=== PATIENT | female | born 1960 | race Caucasian/White ===

== ENCOUNTER 2016-11-24 06:02 | Emergency (ER) | payer BC ==
[2016-11-24 06:13] VITALS: BP 153/81
--- NOTE | 2016-11-24 06:59 | EDM.PDOC ---
ED HPI GENERAL MEDICAL PROBLEM - General Chief Complaint: Abdominal Pain Stated Complaint: LEFT SIDE PAIN UP INTO SHOULDER BLADE Time Seen by Provider: 11/24/16 06:19 Source of Information: Reports: Patient, RN notes reviewed History Limitations: Reports: No limitations - History of Present Illness INITIAL COMMENTS - FREE TEXT/NARRATIVE: The patient states that she has had left side pain that extends into her lower back, up her left side, across her upper back and across her bilateral shoulders for several months. She is unable to characterize the pain, other than it is uncomfortable, although she reports occasional worsening pain that feels sharp in character. She denies any recent dyspnea, palpitations, nausea, emesis, constipation, diarrhea, or urinary symptoms (although she states that her bladder is full, presently). She states that her symptoms are worse with activity, better when at rest. She states that there is nothing different today about her symptoms, and I am unable to determine what precipitated her ED visit. She also reports central chest pain for several months. She states that she saw her chiropractor about this, and he determined, without performing any imaging studies or an EGD, that the patient had a hiatal hernia, and then was able to reduce it through some sort of manipulation. She states that she had instantaneous relief of pain. She saw her PCP, Jamaica Wall, a couple of months ago for an unrelated issue, and did not discuss her symptoms, therefore she has not had a previous medical evaluation of these symptoms. The patient was, however, seen in this ED 08/28/2016, after being found to have an elevated heart rate at the clinic. Workup, including an ECG, were unremarkable. The patient has never had an EGD, however, has had 3 colonoscopies that were normal. Left Flank Pain Score (Numeric/FACES): 4 - Related Data Allergies Allergy/AdvReac Type Severity Reaction Status Date / Time codeine Allergy Delusions Verified 11/24/16 06:13 Home Meds: Home Meds Betane Pepsin 1 - 2 cap PO TIDMEALS 08/28/16 [History] Estriol Compound 1 applic VAG ASDIRECTED 08/28/16 [History] Progesterone,Micronized [Progesterone] 150 mg PO BEDTIME 08/28/16 [History] Past Medical History HEENT History: Reports: Impaired vision Other HEENT History: wears eyeglasses. 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: Psychiatric History: Reports: Anxiety (untreated) - Infectious Disease History Infectious Disease History: Reports: Chicken pox - Past Surgical History GI Surgical History: Reports: Colonoscopy (x 3) Female Surgical History: Reports: section (x 2), Other (see below) ( Transvaginal cervical cerclage x 2) Social & Family History - Tobacco Use Smoking Status *Q: Never Smoker Second Hand Smoke Exposure: No - Caffeine Use Caffeine Use: Reports: None Caffeine Use Comment: states feels caffeine "brings on more anxiety." - Alcohol Use Alcohol Use History: Yes Alcohol Use Frequency: Rarely - Recreational Drug Use Recreational Drug Use: No - Living Situation & Occupation Living situation: Reports: , with spouse, with family (Daughter) Occupation: employed (3rd grade reading teacher) ED ROS GENERAL - Review of Systems Review Of Systems: See Below Constitutional: Reports: no symptoms HEENT: Reports: No symptoms Respiratory: Reports: No Symptoms Cardiovascular: Reports: Chest pain (as per the HPI) Endocrine: Reports: no symptoms GI/Abdominal: Reports: Abdominal pain (as per the HPI). Denies: Constipation, Diarrhea, Nausea, Vomiting : Reports: no symptoms Musculoskeletal: Reports: shoulder pain (as per the HPI), back pain (as per the HPI) Skin: Reports: no symptoms Neurological: Reports: No Symptoms Psychiatric: Reports: No symptoms Hematologic/Lymphatic: Reports: no symptoms Immunologic: Reports: no symptoms ED EXAM, GENERAL - Physical Exam Exam: See Below Exam Limited By: No limitations General Appearance: alert, WD/WN, no apparent distress Eye Exam: bilateral eye: EOMI, normal inspection Ears: normal external exam, hearing grossly normal Ear Exam: bilateral ear: auricle normal Nose: normal inspection, no blood Throat/Mouth: Normal inspection, Normal lips, Normal voice, No airway compromise Head: atraumatic, normocephalic Neck: normal inspection, full range of motion Respiratory/Chest: no respiratory distress, lungs clear, normal breath sounds, no accessory muscle use Cardiovascular: normal peripheral pulses, regular rate, rhythm, no gallop, no JVD, no murmur, no rub Peripheral Pulses: 4+: radial (L), radial (R) GI/Abdominal: normal bowel sounds, soft, non tender, no organomegaly, no distention, no abnormal bruit, no mass (Female) Exam: Deferred Rectal (Female) Exam: Deferred Back Exam: normal inspection, full range of motion. No: CVA tenderness (L), CVA tenderness (R) Extremities: normal inspection, normal range of motion, no pedal edema, normal capillary refill Neurological: alert, oriented, normal cognition, no motor/sensory deficits Psychiatric: normal affect Skin Exam: Warm, Dry, Intact, Normal color, No rash Lymphatic: no adenopathy EKG INTERPRETATION EKG Date: 11/24/16 Time: 06:43 Rhythm: NSR Rate (beats/min): 69 Delta: normal P-wave: present QRS: normal ST-T: normal QT: normal Comparison: no change (08/28/2016) Course - Vital Signs Last Recorded V/S: Last Vital Signs Temp 36.8 C 11/24/16 06:10 Pulse 95 11/24/16 06:10 Resp 16 11/24/16 06:10 BP 153/81 H 11/24/16 06:10 Pulse Ox 96 11/24/16 06:10 - Orders/Labs/Meds Orders: Active Orders 24 hr Category Date Time Status EKG Documentation Completion [RC] STAT Care 11/24/16 06:34 Active Chest 2V [CR] Stat Exams 11/24/16 06:33 Taken Labs: Laboratory Tests 11/24/16 11/24/16 11/24/16 Range/Units 06:45 06:50 06:50 WBC 5.77 (3.98-10.04) K/mm3 RBC 4.98 (3.98-5.22) M/mm3 Hgb 15.0 (11.2-15.7) gm/L Hct 44.6 (34.1-44.9) % MCV 89.6 (79.4-94.8) fl MCH 30.1 (25.6-32.2) pg MCHC 33.6 (32.2-35.5) g/dl RDW Std Deviation 45.1 (36.4-46.3) fL Plt Count 239 (182-369) K/mm3 MPV 10.3 (9.4-12.3) fl Neutrophils % (Manual) 71 H (40-60) % Band Neutrophils % 0 (0-10) % Lymphocytes % (Manual) 26 (20-40) % Atypical Lymphs % 0 % Monocytes % (Manual) 3 (2-10) % Eosinophils % (Manual) 0 L (0.7-5.8) % Basophils % (Manual) 0 L (0.1-1.2) Platelet Estimate Adequate RBC Morph Comment Normal Sodium 143 (136-145) mEq/L Potassium 3.7 (3.5-5.1) mEq/L Chloride 106 (98-107) mEq/L Carbon Dioxide 28 (21-32) mEq/L Anion Gap 12.7 (5-15) BUN 12 (7-18) mg/dL Creatinine 1.0 (0.55-1.02) mg/dL Est Cr Clr Drug Dosing 44.58 mL/min Estimated GFR (MDRD) 57 (>60) mL/min BUN/Creatinine Ratio 12.0 L (14-18) Glucose 97 (74-106) mg/dL Calcium 9.0 (8.5-10.1) mg/dL Magnesium 2.2 (1.8-2.4) mg/dl Total Bilirubin 0.5 (0.2-1.0) mg/dL AST 23 (15-37) U/L ALT 29 (14-59) U/L Alkaline Phosphatase 77 (46-116) U/L Troponin I < 0.017 (0.00-0.056) ng/mL C-Reactive Protein < 0.2 (<1.0) mg/dL Total Protein 7.4 (6.4-8.2) g/dl Albumin 3.9 (3.4-5.0) g/dl Globulin 3.5 gm/dL Albumin/Globulin Ratio 1.1 (1-2) Lipase 149 (73-393) U/L Urine Color Light yellow (Yellow) Urine Appearance Clear (Clear) Urine pH 6.5 (5.0-8.0) Ur Specific [place] 1.010 (1.005-1.030) Urine Protein Negative (Negative) Urine Glucose (UA) Negative (Negative) Urine Ketones Negative (Negative) Urine Occult Blood Negative (Negative) Urine Nitrite Negative (Negative) Urine Bilirubin Negative (Negative) Urine Urobilinogen 0.2 (0.2-1.0) Ur Leukocyte Esterase Negative (Negative) Urine RBC Not seen (0-5) /hpf Urine WBC 0-5 (0-5) /hpf Ur Epithelial Cells 5-10 H (0-5) /hpf Urine Bacteria Not seen (FEW) /hpf Urine Mucus Not seen (FEW) /hpf - Radiology Interpretation Free Text/Narrative:: Two-view chest radiograph appears to be grossly normal. Cardiac silhouette is within normal limits. No pulmonary vascular congestion. No pleural effusions. No focal infiltrate. No pneumothorax. Formal read per the Radiologist pending. - Re-Assessments/Exams Free Text/Narrative Re-Assessment/Exam: 11/24/16 07:48 Test results discussed with the patient. Today's workup is entirely normal, and does not explain the cause of the patient's pain. I did not order a CT scan of the patient's abdomen, as her abdominal exam was completely benign, and I felt that the likelihood of finding a significant abnormality was low, and that the risk from radiation did not warrent the study. I am recommending to the patient that if her symptoms persist, that she talk to her PCP, Jamaica Wall, about a MRI of the abdomen. Departure - Departure Time of Disposition: 07:50 Disposition: Home, Self-Care 01 Condition: good Clinical Impression: Abdominal pain of unknown etiology, Back pain, Shoulder pain Referrals: Jamaica Wall, TECHNICAL DOCUMENTATION SPECIALIST [Primary Care Provider] - Forms: ED Department Discharge Additional Instructions: You were seen in the emergency room for left-sided abdominal pain that spreads to your lower and upper back, and involves your shoulders. Workup in the ER included blood work, a urinalysis, an ECG, and a chest x-ray. Your entire workup was unremarkable, and does not explain the cause of your symptoms. We recommend you followup with your PCP, Jamaica Wall, to discuss further evaluation, that may involve a MRI of your abdomen. If any other problems, please do not hesitate to return to the ER. - My Orders Last 24 Hours: My Active Orders 11/24/16 06:33 Chest 2V [CR] Stat 11/24/16 06:34 EKG Documentation Completion [RC] STAT - Assessment/Plan Last 24 Hours: My Active Orders 11/24/16 06:33 Chest 2V [CR] Stat 11/24/16 06:34 EKG Documentation Completion [RC] STAT
--- NOTE | 2016-11-24 16:18 | CR ---
Chest: Two views of the chest were obtained. Comparison: No previous chest x-ray. Heart size and mediastinum are within normal limits. Lungs are clear. Bony structures are within normal limits for the patient's age. Impression: 1. Nothing acute is identified on two-view chest x-ray. Diagnostic code #1
== END 2016-11-24 08:15 | disposition home or self-care (01) ==
LOC: JD.ED 06:02
DX: R10.9 Unspecified abdominal pain (principal); M54.9 Dorsalgia, unspecified; M25.512 Pain in left shoulder; M25.511 Pain in right shoulder; Z88.8 Allergy status to other drugs, medicaments and biological substances; F41.9 Anxiety disorder, unspecified; Z79.899 Other long term (current) drug therapy
CPT/HCPCS: 36415; 71020; 71020-26; 80053; 81001; 83690; 83735; 84484; 85025; 86140; 93005; 99283; 99284-25